=== PATIENT | female | born 1950 | race Caucasian/White ===

== ENCOUNTER 2023-09-04 08:30 | Day surgery (SDC) | payer MEDICARE, SELFPAY ==
[2023-09-04] VITALS (8 sets, daily range): BP systolic 123–144; BP diastolic 54–83; BMI 20.5
[2023-09-04 08:46] LABS: Hematocrit 38.7 % (37.0-47.0); Hemoglobin 12.8 g/dL (12.0-16.0); Mean Corp Hgb Conc. 33.1 g/dL (33.0-37.0); Mean Corpuscular Hgb 27.9 pg (27.0-31.0); Mean Corpuscular Volume 84.3 fL (81.0-99.0); Mean Platelet Volume 10.2 fL (7.4-10.4); Platelet Count 385 10^3/uL (130-400); Red Blood Cell Count 4.59 10^6/uL (4.20-5.40); Red Cell Dist. Width 15.8 % (11.5-14.5)
[2023-09-04 08:58] LABS: Blood Urea Nitrogen 21 mg/dl (7-17); Calcium 9.7 mg/dl (8.4-10.2); Carbon Dioxide 26 mmol/L (22-30); Chloride 102 mmol/L (98-107); Estimated Creatinine Clearance 65 ml/min; Glucose 77 mg/dl (70-99); INR 0.91; PT 12.2 Sec (11.4-14.6); Potassium 3.5 mmol/L (3.5-5.1); Sodium 137 mmol/L (135-145); eGFR > 60.00
[2023-09-04 09:11] LABS: APTT 22.1 Sec (23.4-35.0)
[2023-09-04] MEDS: NSS 500 IV (09:15)
[2023-09-04] MEDS: PERIDEX 0.12% ORAL RINSE 15 ML PO (09:16)
[2023-09-04] MEDS: BACTROBAN NASAL 1 GRAM NASAL (09:16)
--- NOTE | 2023-09-04 10:14 | W.SUR.PREOP ---
Pre-Operative Surgical Note
-
I have examined this patient prior to the performance of the scheduled procedure.
The patient's condition is unchanged from the time of the current History and
Physical and the patient is able to undergo the scheduled procedure.
--- NOTE | 2023-09-04 12:28 | W.SUR.POST ---
Surgical Immediate Post Op
Note
Pre Op Diagnosis: GCA
Post Op Diagnosis: GCA
Procedure Performed: Left temporal artery biopsy, right temporal artery exploration
Primary Surgeon: Moe Bush MD
office manager executive assistant: Babs Caal NP-Rosa Maria
Anesthesia: MAC
Estimated Blood Loss: Less than 2 ml
Fluids: See anesthesia flowsheet
Drains/Shunts: N/A
Specimens/Cultures: N/A
Doppler/Duplex/Angio (Y/N): Y, Doppler
Complications: None
Operative Findings: Unable to identify right temporal artery
[2023-09-04] MEDS: NSS 1000 IV (12:54)
--- NOTE | 2023-09-04 15:08 | OR.RPT ---
Operative Report
Operative Report
PROCEDURE DATE: 09/04/2023
Preoperative diagnosis: Temporal arteritis
Postoperative diagnosis: Same
Procedure:
1. Left superficial temporal artery biopsy.
2. Exploration of right scalp.
Surgeon: Eleazar
Ecommerce Analyst: Luda
Complications: None
Anesthesia: Local, sedation
Indications for procedure:
Patient referred for possible temporal arteritis. Brought for bilateral temporal artery biopsies. Risk/benefits/alternatives all fully discussed. Patient understood and wished to proceed. Right-sided pulsation of the superficial temporal artery
in its usual course just anterior/superior to the pinna of the ear was not palpable. However I was able to Doppler signal, and was able to santos that. There was a pulsation that was able to feel closer to the hairline and midline in the scalp,
likely representing a branch.
Description of procedure:
Patient was identified brought to the operating room placed on the table in supine position. After the adequate administration of anesthesia and perioperative antibiotics she was prepped and draped in the standard surgical fashion. A standard
preoperative timeout was undertaken and everybody was in agreement the plan. A longitudinal incision was made in the left scalp just anterior and superior to the superiormost aspect of the pinna of the left ear (overlying the palpable pulsation of
the artery) after infiltration of the skin and subcutaneous tissue with 1% lidocaine. This was carried down through the subcutaneous layer and the fascia layer with electrocautery. The superficial temporal artery was identified. It was mobilized
using sharp dissection. It was then ligated proximally and distally as well as a branch ligated all with silk ties and a clip. I then transected the artery. This was then sent for specimen.
A similar incision was made in the right scalp just anterior and superior to the superiormost aspect of the pinna of the right ear (overlying the santos I had made correlating to the Doppler signal) after infiltration of the skin and subcutaneous
tissue with 1% lidocaine. Similarly this was carried down through the subcutaneous tissue and fascial layer with the electrocautery. I could not identify the superficial temporal artery through the field. I used the Doppler in the field and noted
a signal but was unable to find the artery in my incision bed. At this point I felt rather than extensively making additional incisions or extensive exploration, since I had obtained reasonable tissue from the left side, I decided not to pursue
further surgical exploration.
Both incision sites were then irrigated. Hemostasis was achieved and confirmed. I then closed in layers using 3-0 Vicryl deep dermal layer followed by 4-0 Monocryl subcuticular running layer (this was completed bilaterally). Dermabond was then
applied bilaterally. Patient tolerated procedure well.
== END 2023-09-04 13:55 | disposition home or self-care (01) ==
LOC: CATH 08:30
PROVIDERS: ATTENDING PHYSICIAN Surgery Vascular Surgery
DX: M31.6 Other giant cell arteritis (principal); Z79.82 Long term (current) use of aspirin
CPT/HCPCS: 37609; 88305; 80048; 85027; 85610; 85730; 86850; 86900; 86901; 88313; 93005